=== PATIENT | male | born 1980 | race African-American/Black ===

== ENCOUNTER 2022-12-31 17:34 | Inpatient (IN) | payer OTHER ==
[2022-12-31 18:00] VITALS: BMI 24.3
[2022-12-31] MEDS ORDERED: ACETAMINOPHEN 1000 MG/100 ML BAG IVPB ONE (18:23)
[2022-12-31] MEDS ORDERED: FAMOTIDINE 20 MG/50 ML IVPB 20 MG/50 ML MG IVPB ONE ×2 (18:23→18:41)
[2022-12-31] MEDS ORDERED: SODIUM CHLORIDE 0.9% 500 ML INFUS.BAG IV ONE ×3 (18:23→21:59)
[2022-12-31] MEDS ORDERED: MAG HYDROX/AL HYDROX/SIMETH 30 ML UNIT-DOSE CUP PO ONE (18:23)
[2022-12-31] MEDS ORDERED: HALOPERIDOL DECANOATE 100 MG/ML IM ONE (18:26)
[2022-12-31] MEDS ORDERED: HALOPERIDOL LACTATE 5 MG/ML ONE (18:40)
[2022-12-31] MEDS ORDERED: ACETAMINOPHEN INJECTION 100 ML IVPB ONE (18:40)
[2022-12-31] MEDS ORDERED: MAG HYDROX/AL HYDROX/SIMETH 30 ML UNIT-DOSE CUP ONE (18:41)
[2022-12-31 18:59] LABS: BASO % 0.5 % (0-2.0); EOS % 0.1 % (0-4.5); HEMATOCRIT 55.5 % (35.4-49); HEMOGLOBIN 17.4 GM/dL (11.7-16.9); LYMPH % 14.2 % (8-40); MCHC 31.4 g/dl (32.0-35.9); MEAN CELL VOLUME 101.9 fl (80-96); MEAN PLT VOLUME 8.7 fl (7.5-11.1); MONO % 5.7 % (3.8-10.2); NEUT % 79.5 % (42.8-82.8); PLATELET COUNT 277 10^3/uL (134-434); RBC 5.44 M/mm3 (4.00-5.60); RDW 15.2 % (11.9-15.9); WHITE BLOOD COUNT 15.9 K/mm3 (4.0-10.0)
[2022-12-31 19:06] LABS: POTASSIUM 5.6 mmol/L (3.5-5.1)
[2022-12-31 19:09] LABS: ALBUMIN 4.6 g/dl (3.4-5.0); BLOOD UREA NITROGEN 20.4 mg/dL (7-18); CALCIUM 10.5 mg/dL (8.5-10.1)
[2022-12-31 19:11] LABS: CREATININE 1.6 mg/dL (0.55-1.3)
[2022-12-31 19:14] LABS: BILIRUBIN,TOTAL 0.7 mg/dL (0.2-1); TOT PROT 9.9 g/dl (6.4-8.2)
[2022-12-31] MEDS ORDERED: METOCLOPRAMIDE HCL INJECTION 10 MG/2 ML VIAL IVPUSH ONE (20:14)
[2022-12-31] MEDS ORDERED: METOCLOPRAMIDE HCL INJECTION 10 MG/2 ML VIAL ONE (20:24)
[2022-12-31] MEDS ORDERED: ASPIRIN 81 MG CHEWABLE TABLETS PO ONE (21:40)
[2022-12-31] MEDS ORDERED: ASPIRIN 81 MG CHEWABLE TABLETS ONE (21:51)
[2022-12-31] MEDS ORDERED: PANTOPRAZOLE SODIUM 40 MG VIAL IVPUSH ONE (22:50)
[2022-12-31] MEDS ORDERED: PANTOPRAZOLE SODIUM 40 MG VIAL ONE (23:14)
[2022-12-31 23:55] LABS: LACTIC ACID 2.3 mmol/L (0.4-2.0)
[2023-01-01] MEDS ORDERED: HEPARIN NA (PORCINE) 5,000 UNITS/ML 1ML VIAL IVPUSH ONE (00:06)
[2023-01-01] MEDS ORDERED: TICAGRELOR 60 MG TABLET PO ONE (00:06)
[2023-01-01] MEDS ORDERED: HEPARIN NA (PORCINE) 5,000 UNITS/ML 1ML VIAL IVPUSH PRN ×2 (00:06)
[2023-01-01] MEDS ORDERED: HEPARIN INFUSION - 25,000 UNITS/500 ML INFUS.BAG IVPB SCH (00:15)
[2023-01-01 00:55] LABS: INR 1.02 (0.83-1.09); PROTHROMBIN TIME (PATIENT) 11.8 SEC (9.7-13.0)
[2023-01-01 00:58] LABS: ACTIVATED PTT 29.5 SECONDS (25.2-36.5)
[2023-01-01] MEDS ORDERED: HEPARIN NA (PORCINE) 5,000 UNITS/ML 1ML VIAL ONE (01:03)
[2023-01-01] MEDS ORDERED: HEPARIN INFUSION - 25,000 UNITS/500 ML INFUS.BAG IVPB ONE (01:03)
[2023-01-01] MEDS ORDERED: ATORVASTATIN CA 40 MG TABLET (FP) PO ONE (01:49)
[2023-01-01] MEDS ORDERED: ATORVASTATIN CA 40 MG TABLET (FP) ONE (02:54)
[2023-01-01 02:57] VITALS: RESP 16
[2023-01-01] MEDS ORDERED: PROMETHAZINE HCL 25 MG/1 ML VIAL IM PRN (03:43)
[2023-01-01] MEDS ORDERED: SODIUM CHLORIDE 1,000 ML IV SCH (03:45)
[2023-01-01 03:47] LABS: BASO % 0.4 % (0-2.0); HEMOGLOBIN 16.8 GM/dL (11.7-16.9); LYMPH % 5.2 % (8-40); MCH 32.3 pg (25.7-33.7); MCHC 33.5 g/dl (32.0-35.9); MEAN CELL VOLUME 96.3 fl (80-96); MEAN PLT VOLUME 8.5 fl (7.5-11.1); MONO % 3.9 % (3.8-10.2); NEUT % 90.5 % (42.8-82.8); PLATELET COUNT 305 10^3/uL (134-434); RBC 5.19 M/mm3 (4.00-5.60); RDW 14.1 % (11.9-15.9); WHITE BLOOD COUNT 16.7 K/mm3 (4.0-10.0)
[2023-01-01 03:50] LABS: EPI CELLS 3 /uL (0-25.1); HYALINE CASTS 0 /uL (0-3.1); URINE APPEARANCE CLEAR; URINE BACTERIA 7 /uL (0-1359); URINE BILIRUBIN NEGATIVE (NEGATIVE); URINE COLOR YELLOW; URINE GLUCOSE (UA) NEGATIVE (NEGATIVE); URINE KETONE NEGATIVE (NEGATIVE); URINE LEUK ESTERASE NEGATIVE (NEGATIVE); URINE NITRITE NEGATIVE (NEGATIVE); URINE PROTEIN TRACE (NEGATIVE); URINE RBC 252 /uL (0-23.9); URINE UROBILINOGEN 0.2 mg/dL (0.2-1.0); URINE WBC 15 /uL (0-25.8)
[2023-01-01 04:06] LABS: POTASSIUM 4.5 mmol/L (3.5-5.1)
[2023-01-01 04:10] LABS: ALBUMIN 3.8 g/dl (3.4-5.0)
[2023-01-01 04:13] LABS: BILIRUBIN,TOTAL 0.6 mg/dL (0.2-1); CREATININE 1.3 mg/dL (0.55-1.3); TOT PROT 8.1 g/dl (6.4-8.2)
[2023-01-01 04:20] LABS: CALCIUM 8.8 mg/dL (8.5-10.1)
[2023-01-01] MEDS ORDERED: busPIRone HCL 5 MG TABLET ONE (05:19)
[2023-01-01] MEDS ORDERED: busPIRone HCL 10 MG TABLET (FP) PO SCH (06:00)
[2023-01-01 06:36] LABS: HEMATOCRIT 50.6 % (35.4-49); HEMOGLOBIN 16.4 GM/dL (11.7-16.9); MCHC 32.4 g/dl (32.0-35.9); MEAN CELL VOLUME 98.7 fl (80-96); MEAN PLT VOLUME 8.7 fl (7.5-11.1); PLATELET COUNT 301 10^3/uL (134-434); RBC 5.13 M/mm3 (4.00-5.60); RDW 13.9 % (11.9-15.9); WHITE BLOOD COUNT 16.5 K/mm3 (4.0-10.0)
[2023-01-01 06:48] LABS: CALCIUM 8.4 mg/dL (8.5-10.1)
[2023-01-01 06:49] LABS: BLOOD UREA NITROGEN 18.7 mg/dL (7-18)
[2023-01-01 06:53] LABS: CREATININE 1.1 mg/dL (0.55-1.3); PHOSPHOROUS 2.9 mg/dL (2.5-4.9)
[2023-01-01] MEDS: INSULIN ASPART SLIDING SCALE (NOVOLOG) 1 VIAL SQ SCH ×2 (08:26→12:47)
[2023-01-01 09:37] VITALS: TEMP 98.1
[2023-01-01] MEDS ORDERED: CEFTRIAXONE 1 GM/50 ML BAG ONE (09:38)
[2023-01-01] MEDS ORDERED: CEFTRIAXONE 1 GM in DEXTROSE 5%-WATER - 50 ML IVPB SCH (10:00)
[2023-01-01] MEDS ORDERED: ARIPiprazole 15 MG TABLET PO SCH (10:00)
[2023-01-01] MEDS ORDERED: propRANOLol HCL 10 MG TABLET PO SCH (10:00)
[2023-01-01 14:01] VITALS: BP 136/98; PULSE 90
[2023-01-01] MEDS ORDERED: SERTRALINE HCL 50 MG TABLET (FP) PO SCH (22:00)
[2023-01-01] MEDS ORDERED: DIVALPROEX NA *ER* EXTEND REL 250 MG TABLET.SA PO SCH ×2 (22:00)
[2023-01-01] MEDS ORDERED: ATORVASTATIN CA 40 MG TABLET (FP) PO SCH (22:00)
[2023-01-02] MEDS ORDERED: ATORVASTATIN CA 40 MG TABLET (FP) PO ONE (22:00)
== END 2023-01-01 14:11 | disposition short-term general hospital (02) | DRG 190 ==
LOC: JER 17:34 → JERBED 01-01 02:00
PROVIDERS: ADMIT Internal Medicine; ATTEND Internal Medicine
DX: I21.4 Non-ST elevation (NSTEMI) myocardial infarction (principal); F41.8 Other specified anxiety disorders; K52.9 Noninfective gastroenteritis and colitis, unspecified; R11.2 Nausea with vomiting, unspecified
CPT/HCPCS: 36415; 74174-TC; 76775-TC; 80048; 80053; 81003; 82550; 82553; 82962; 83036; 83605; 83690; 83735; 84100; 84484; 85025; 85027; 85610; 85730; 87040; 87086; 93005; 93010; 93306-TC; 99285-25; J1644